=== PATIENT | female | born 1930 | race Caucasian/White ===

== ENCOUNTER 2018-01-30 00:47 | Emergency (ER) | payer OTHER ==
[~2018-01-30] VITALS: Ht 162.6 cm; Wt 70.3 kg
[2018-01-30 00:57] VITALS: BP_SYST 99
--- NOTE | 2018-01-30 00:57 | NUR ---
Placed in room 4 . Placed on nursing instructor, blood pressure machine and pulse oximeter. To gown for exam. Side rails up.
--- NOTE | 2018-01-30 01:00 | NUR ---
Patient is AAOx4, uses a wheelchair at home. Patient states she "took her blood pressure at home which was in the low 70s" approximately 30 minutes prior to ER visit. Patient denies weakness, denies chest pain, shortness of breath, and pain at this time. Patient denies any other complaints.
--- NOTE | 2018-01-30 01:03 | NUR ---
ER Dr. Upton at bedside examining patient.
[2018-01-30] MEDS ORDERED: NACL 0.9% 1,000 ML IV ONE ×2 (01:21→01:30)
[2018-01-30 02:27] LABS: BASOPHILS # (AUTO) 0.1 K/uL (0.0-0.2); BASOPHILS % (AUTO) 1.8 % (0.0-2.0); EOSINOPHILS # (AUTO) 0.2 K/uL (0.0-0.4); EOSINOPHILS % (AUTO) 2.5 % (0.0-4.0); HEMATOCRIT 33.7 % (36-48); HEMOGLOBIN 11.3 g/dL (12.0-16.0); LYMPHOCYTES # (AUTO) 1.2 K/uL (1.0-5.5); LYMPHOCYTES % (AUTO) 17.9 % (20.5-51.5); MEAN CORPUSCULAR HEMOGLOBIN 31 pg (27-31); MEAN CORPUSCULAR HGB CONC 34 % (32-36); MEAN CORPUSCULAR VOLUME 92 fL (79.0-98.0); MONOCYTES # (AUTO) 0.7 K/uL (0.0-1.0); NEUTROPHILS # (AUTO) 4.4 K/uL (1.8-7.7); NEUTROPHILS % (AUTO) 67.8 % (40.0-70.0); PLATELET COUNT (AUTO) 281 K/uL (130-430); RED BLOOD CELL COUNT(AUTO) 3.65 MIL/uL (4.2-6.2); RED CELL DISTRIBUTION WIDTH 13.9 % (9.0-15.0); WHITE BLOOD COUNT (AUTO) 6.6 K/uL (4.8-10.8)
[2018-01-30 02:36] LABS: ANION GAP 5 (5-15); CHLORIDE 106 mmol/L (98-107); CREATININE 1.68 mg/dL (0.55-1.30); GLUCOSE 99 mg/dL (70-99); POTASSIUM 3.8 mmol/L (3.5-5.1); SODIUM SERUM 139 mmol/L (136-145); UREA NITROGEN, BLOOD 38 mg/dL (8-21)
[2018-01-30 02:40] LABS: ALANINE AMINOTRANSFERASE 22 U/L (12-78); ALBUMIN 3.4 g/dL (3.4-4.8); AMYLASE 55 U/L (0-100); ASPARTATE AMINOTRANSFERASE 27 U/L (10-37); LIPASE 355 U/L (73-393); TOTAL BILIRUBIN 0.3 mg/dL (0.0-1.0)
--- NOTE | 2018-01-30 02:57 | NUR ---
Patient is calmly resting in ER bed, no signs of distress noted at this time. Patient denies any complaints.
[2018-01-30 03:21] LABS: PROTHROMBIN TIME 10.2 SECS (9.5-12.5)
[2018-01-30 03:23] LABS: CKMB RELATIVE INDEX 1.1 (0.0-2.9); CREATINE KINASE MB 2.2 ng/mL (0-3.6)
[2018-01-30] MEDS ORDERED: SPIR25TA PO (03:35)
[2018-01-30] MEDS ORDERED: THYR30TA PO (03:35)
[2018-01-30] MEDS ORDERED: GABA-531 PO (03:35)
[2018-01-30] MEDS ORDERED: POTA8TAB4 PO (03:35)
[2018-01-30] MEDS ORDERED: FURO-150 PO (03:35)
[2018-01-30] MEDS ORDERED: METO-442 PO (03:35)
[2018-01-30] MEDS ORDERED: RANI-362 PO (03:35)
[2018-01-30] MEDS ORDERED: APIX2.5T PO (03:35)
[2018-01-30] MEDS ORDERED: ALLO100T PO (03:35)
--- NOTE | 2018-01-30 03:35 | NUR ---
Medication reconciliation completed with information provided by patient. Any prior medication reconciliation on file was reviewed and corrected.
[2018-01-30 04:05] VITALS: BP_SYST 103
--- NOTE | 2018-01-30 04:05 | NUR ---
Patient given written and verbal discharge instructions and verbalizes understanding. ER MD discussed with patient the results and treatment provided. Patient in stable condition. ID arm band removed. IV catheter removed intact and dressing applied, no active bleeding. Patient educated on pain management and to follow up with PMD. Pain Scale 0/10. Opportunity for questions provided and answered.
== END 2018-01-30 04:05 | disposition home or self-care (01) ==
LOC: SED 00:47
DX: I95.89 Other hypotension (principal); M10.9 Gout, unspecified; Z79.899 Other long term (current) drug therapy
CPT/HCPCS: 36415; 71045; 80053; 82150; 82550; 82553; 83690; 84484; 85025; 85610; 85730; 93005; 96360; 96361; 99285; J7030; 96366

== ENCOUNTER 2018-03-06 14:36 | Observation (INO) | payer OTHER ==
[~2018-03-06] VITALS: Ht 162.6 cm; Wt 72.6 kg
[~2018-03-06 14:36] MED LIST: ALLO100T PO; APIX2.5T PO; FURO-150 PO; GABA-531 PO; METO-442 PO; POTA8TAB4 PO; RANI-362 PO; SPIR25TA PO; THYR30TA PO
[2018-03-06 14:45] VITALS: BP_SYST 132
[2018-03-06] MEDS ORDERED: ASPIRIN 81 MG TAB.CHEW PO ONE (15:15)
[2018-03-06 15:25] LABS: BASOPHILS # (AUTO) 0.1 K/uL (0.0-0.2); BASOPHILS % (AUTO) 0.9 % (0.0-2.0); EOSINOPHILS # (AUTO) 0.3 K/uL (0.0-0.4); EOSINOPHILS % (AUTO) 4.1 % (0.0-4.0); HEMOGLOBIN 12.1 g/dL (12.0-16.0); LYMPHOCYTES # (AUTO) 1.3 K/uL (1.0-5.5); LYMPHOCYTES % (AUTO) 21.4 % (20.5-51.5); MEAN CORPUSCULAR HEMOGLOBIN 31 pg (27-31); MEAN CORPUSCULAR HGB CONC 34 % (32-36); MEAN CORPUSCULAR VOLUME 92 fL (79.0-98.0); MONOCYTES # (AUTO) 0.6 K/uL (0.0-1.0); MONOCYTES % (AUTO) 10.3 % (1.7-9.3); NEUTROPHILS # (AUTO) 3.8 K/uL (1.8-7.7); NEUTROPHILS % (AUTO) 63.3 % (40.0-70.0); PLATELET COUNT (AUTO) 255 K/uL (130-430); RED CELL DISTRIBUTION WIDTH 13.7 % (9.0-15.0); WHITE BLOOD COUNT (AUTO) 6.1 K/uL (4.8-10.8)
[2018-03-06 15:38] LABS: ANION GAP 7 (5-15); CALCIUM 9.2 mg/dL (8.4-11.0); CHLORIDE 103 mmol/L (98-107); CREATININE 1.36 mg/dL (0.55-1.30); GLUCOSE 109 mg/dL (70-99); POTASSIUM 3.7 mmol/L (3.5-5.1); SODIUM SERUM 140 mmol/L (136-145); UREA NITROGEN, BLOOD 22 mg/dL (8-21)
[2018-03-06 15:44] LABS: ALANINE AMINOTRANSFERASE 22 U/L (12-78); ALBUMIN 3.6 g/dL (3.4-4.8); ASPARTATE AMINOTRANSFERASE 27 U/L (10-37); TOTAL BILIRUBIN 0.6 mg/dL (0.0-1.0)
[2018-03-06 16:14] LABS: CKMB RELATIVE INDEX 1.4 (0.0-2.9); CREATINE KINASE MB 3.6 ng/mL (0-3.6)
[2018-03-06] MEDS ORDERED: fentaNYL CITRATE/PF 100 MCG/2 ML AMP IVP ONE (17:00)
[2018-03-06 17:35] VITALS: BP_SYST 136
[2018-03-06] MEDS: APIXABAN 2.5 MG TABLET PO SCH (19:28)
[2018-03-06 19:55] VITALS: BP_SYST 120
[2018-03-06] MEDS: GABAPENTIN 300 MG CAPSULE PO SCH (20:31)
[2018-03-06] MEDS: FUROSEMIDE 20 MG TABLET PO SCH (20:32)
[2018-03-06] MEDS: METOPROLOL TARTRATE 50 MG TABLET PO SCH (20:32)
[2018-03-06] MEDS ORDERED: FAMOTIDINE 20 MG TABLET PO SCH (21:00)
[2018-03-07 01:37] VITALS: BP_SYST 117
[2018-03-07] MEDS ORDERED: THYROID 30 MG TABLET PO SCH (06:00)
[2018-03-07 08:17] VITALS: BP_SYST 108
[2018-03-07] MEDS ORDERED: ALLOPURINOL 100 MG TABLET (ZYLOPRIM) PO SCH (09:00)
[2018-03-07] MEDS: FUROSEMIDE 20 MG TABLET PO SCH (09:29)
[2018-03-07] MEDS: GABAPENTIN 300 MG CAPSULE PO SCH (09:29)
[2018-03-07] MEDS: METOPROLOL TARTRATE 50 MG TABLET PO SCH (09:30)
[2018-03-07] MEDS: APIXABAN 2.5 MG TABLET PO SCH (09:31)
[2018-03-07 11:04] VITALS: BP_SYST 118
[2018-03-07 14:31] VITALS: BP_SYST 117
== END 2018-03-07 14:50 | disposition home or self-care (01) ==
LOC: SED 14:36 → STU 16:56
PROVIDERS: ADMIT Internal Medicine Hospice and Palliative Medicine; ATTEND Internal Medicine Hospice and Palliative Medicine
DX: R07.89 Other chest pain (principal); E03.9 Hypothyroidism, unspecified; Z86.718 Personal history of other venous thrombosis and embolism
CPT/HCPCS: 36415 ×2; 71045; 80053; 82550; 82553; 84484 ×2; 85025; 85379; 93005; 93306; 93970; 99285; G0378 ×2

== ENCOUNTER 2018-06-29 16:56 | Inpatient (IN) | payer OTHER ==
[~2018-06-29] VITALS: Ht 162.6 cm; Wt 72.1 kg
[~2018-06-29 16:56] MED LIST changes: -SPIR25TA PO
[2018-06-29 17:06] VITALS: BP_SYST 135
--- NOTE | 2018-06-29 17:10 | NUR ---
Patient triaged and placed in waiting room. VSS and patient appears in no acute distress at this time. Accompanied by FAMILY, awaiting available bed, and MD notified of need for MSE.
--- NOTE | 2018-06-29 17:12 | NUR ---
Patient arrived via wheelchair, patient AAOx4. Patient c/c of right lower leg laceration. Patient edematous and weeping. Patient denies pain at this time. Patient denies any shortness of breath or chest pain. No complaints of nausea, vomiting, and diarrhea. Will continue to follow up and monitor patient for changes in status.
--- NOTE | 2018-06-29 17:13 | NUR ---
ambulated to bed 7
--- NOTE | 2018-06-29 17:18 | NUR ---
ER at bedside examining patient.
[2018-06-29] MEDS ORDERED: NACL 0.9% 1,000 ML IV ONE (17:23)
[2018-06-29] MEDS ORDERED: LIDOCAINE 1% 10 MG/ML, 20 ML MDV IJ ONE (17:30)
[2018-06-29] MEDS ORDERED: MORPHINE 4 MG/ML INJ. SYRINGE IVP ONE (17:30)
[2018-06-29] MEDS ORDERED: BACITRACIN 1 GM OINT TP ONE (17:30)
[2018-06-29 17:54] LABS: BASOPHILS # (AUTO) 0.1 K/uL (0.0-0.2); BASOPHILS % (AUTO) 1.8 % (0.0-2.0); EOSINOPHILS # (AUTO) 0.1 K/uL (0.0-0.4); EOSINOPHILS % (AUTO) 0.8 % (0.0-4.0); HEMATOCRIT 40.3 % (36-48); HEMOGLOBIN 12.9 g/dL (12.0-16.0); LYMPHOCYTES # (AUTO) 1.5 K/uL (1.0-5.5); LYMPHOCYTES % (AUTO) 22.9 % (20.5-51.5); MEAN CORPUSCULAR HEMOGLOBIN 30 pg (27-31); MEAN CORPUSCULAR HGB CONC 32 % (32-36); MEAN CORPUSCULAR VOLUME 92 fL (79.0-98.0); MONOCYTES # (AUTO) 0.6 K/uL (0.0-1.0); MONOCYTES % (AUTO) 8.7 % (1.7-9.3); NEUTROPHILS # (AUTO) 4.3 K/uL (1.8-7.7); NEUTROPHILS % (AUTO) 65.8 % (40.0-70.0); PLATELET COUNT (AUTO) 252 K/uL (130-430); RED BLOOD CELL COUNT(AUTO) 4.36 MIL/uL (4.2-6.2); RED CELL DISTRIBUTION WIDTH 15.1 % (9.0-15.0); WHITE BLOOD COUNT (AUTO) 6.6 K/uL (4.8-10.8)
[2018-06-29 18:07] LABS: ANION GAP 7 (5-15); CALCIUM 9.6 mg/dL (8.4-11.0); CHLORIDE 102 mmol/L (98-107); CREATININE 1.16 mg/dL (0.55-1.30); GLUCOSE 94 mg/dL (70-99); POTASSIUM 3.7 mmol/L (3.5-5.1); SODIUM SERUM 142 mmol/L (136-145); UREA NITROGEN, BLOOD 29 mg/dL (8-21)
[2018-06-29 18:12] LABS: PROTHROMBIN TIME 9.9 SECS (9.5-12.5)
[2018-06-29 18:13] LABS: ALANINE AMINOTRANSFERASE 23 U/L (12-78); ALBUMIN 3.5 g/dL (3.4-4.8); AMYLASE 56 U/L (0-100); ASPARTATE AMINOTRANSFERASE 32 U/L (10-37); LIPASE 301 U/L (73-393); TOTAL BILIRUBIN 0.4 mg/dL (0.0-1.0)
--- NOTE | 2018-06-29 18:39 | NUR ---
Orders entered by RN, orders received from Dr. Jack Aceves. Will call for bed assignment.
[2018-06-29] MEDS ORDERED: POTA10TA15 PO (18:44)
[2018-06-29] MEDS ORDERED: FURO-149 PO (18:44)
[2018-06-29] MEDS ORDERED: THYR30TA PO (18:44)
--- NOTE | 2018-06-29 18:44 | NUR ---
Medication reconciliation completed with information provided by patient. Any prior medication reconciliation on file was reviewed and corrected.
[2018-06-29] MEDS ORDERED: ONDANSETRON HCL 4 MG/2 ML VIAL IVP PRN (18:45)
--- NOTE | 2018-06-29 19:12 | NUR ---
Patient will be admitted to care of Dr. Jack Aceves. Admitted to Tele unit. Will go to room 101A. Belongings list completed. Summary report printed. Report will be given at bedside.
--- NOTE | 2018-06-29 19:37 | NUR ---
CONSULTATION CALLED REASON FOR CONSULTATION:CHF WAS CONSULT CALLED?Y PERSON WHO WAS NOTIFIED:[place] CONSULTING PHYSICIAN:CLAUDE WAYNE (KARLO OSCAR AQUATIC LABORER) DIRECTOR TRIAL SPECIALTY:CARDIO DIRECTOR TRIAL PHONE NUMBER:[phone] ORDERING PHYSICIAN:JERZY TREVINO
--- NOTE | 2018-06-29 19:37 | NUR ---
ADMISSION: The patient, LIEN GAVIRIA, 87 y/o, F admitted by JERZY CONWAY MD,with the diagnosis of CHF , was given written information regarding hospital policies, unit procedures and contact persons.
[2018-06-29 20:00] VITALS: BP_SYST 126
[2018-06-29 20:01] VITALS: BP_SYST 126
[2018-06-29] MEDS ORDERED: METO50TA7 PO (20:34)
--- NOTE | 2018-06-29 20:35 | NUR ---
MEDICATION REC: WHILE CHECKING THE MEDICATION PT TAKES AT HOME NOTICED THAT PT TAKES METOPROLOL SUCCINATE AND ER ENTERED METOPROLOL TARTATE , CONFIRMED WITH WHO GAVE THE MEDICATION LIST PER PT TAKES METOPROLOL SUCCINATE ER 50 MG PO TWO TIMES A DAY . PHARMACY CALLED TO CLARIFIED THE METOPROLOL SUCCINATE ER AND SR ORDER , PHARMACY STATED TO ENTER THE SR IT IS SAME LIKE ER .ALSO PHARMACY STATED USUALLY THIS MEDICATION IS ONCE A DAY , GONE TO AND CONFIRMED GAIN PER PT TAKES IT TWICE A DAY . ENTERED IT .
[2018-06-29] MEDS ORDERED: APIXABAN 2.5 MG TABLET PO SCH (21:30)
[2018-06-29] MEDS ORDERED: METOPROLOL SUCCINATE 50 MG TAB.SR.24H (TOPROL XL) PO SCH (21:30)
[2018-06-29] MEDS: FUROSEMIDE 20 MG/2 ML VIAL IVP SCH (21:59)
[2018-06-29] MEDS: POTASSIUM CHLORIDE 10 MEQ TAB.PRT.SR PO SCH (21:59)
[2018-06-29] MEDS: GABAPENTIN 300 MG CAPSULE PO SCH (21:59)
[2018-06-29] MEDS: NORMAL SALINE 5 ML DISP.SYRIN IVF SCH (22:01)
--- NOTE | 2018-06-29 22:13 | NUR ---
Patient tolerated PO medications well. Administered lasix IVP. Right lower leg has minimal drainage/weeping. Patient states no pain or respiratory distress.
[2018-06-29 23:38] VITALS: BP_SYST 137
--- NOTE | 2018-06-30 00:15 | NUR ---
Patient in bed asleep with visualized rise and fall of chest. no appearance of pain or respiratory distress. Call light within reach of the left hand. Will continue to monitor.
--- NOTE | 2018-06-30 02:58 | NUR ---
Patient in bed awake. unable to sleep. patient has no needs at this time. Will use call light if needs to use the bathroom.
[2018-06-30 03:21] LABS: ANION GAP 6 (5-15); CHLORIDE 104 mmol/L (98-107); CREATININE 1.13 mg/dL (0.55-1.30); GLUCOSE 100 mg/dL (70-99); POTASSIUM 3.5 mmol/L (3.5-5.1); SODIUM SERUM 145 mmol/L (136-145); UREA NITROGEN, BLOOD 26 mg/dL (8-21)
[2018-06-30 03:30] LABS: ALANINE AMINOTRANSFERASE 19 U/L (12-78); ASPARTATE AMINOTRANSFERASE 26 U/L (10-37); TOTAL BILIRUBIN 0.5 mg/dL (0.0-1.0)
--- NOTE | 2018-06-30 04:51 | NUR ---
no change in condition.
[2018-06-30] MEDS: NORMAL SALINE 5 ML DISP.SYRIN IVF SCH ×3 (05:59→20:37)
[2018-06-30 07:04] LABS: BASOPHILS % (AUTO) 0.4 % (0.0-2.0); EOSINOPHILS # (AUTO) 0.1 K/uL (0.0-0.4); EOSINOPHILS % (AUTO) 1.2 % (0.0-4.0); HEMATOCRIT 36.8 % (36-48); HEMOGLOBIN 11.9 g/dL (12.0-16.0); LYMPHOCYTES # (AUTO) 1.8 K/uL (1.0-5.5); LYMPHOCYTES % (AUTO) 29.4 % (20.5-51.5); MEAN CORPUSCULAR HEMOGLOBIN 30 pg (27-31); MEAN CORPUSCULAR HGB CONC 32 % (32-36); MEAN CORPUSCULAR VOLUME 92 fL (79.0-98.0); MONOCYTES # (AUTO) 0.8 K/uL (0.0-1.0); MONOCYTES % (AUTO) 12.6 % (1.7-9.3); NEUTROPHILS # (AUTO) 3.4 K/uL (1.8-7.7); NEUTROPHILS % (AUTO) 56.4 % (40.0-70.0); PLATELET COUNT (AUTO) 225 K/uL (130-430); RED BLOOD CELL COUNT(AUTO) 3.98 MIL/uL (4.2-6.2); RED CELL DISTRIBUTION WIDTH 15.4 % (9.0-15.0); WHITE BLOOD COUNT (AUTO) 6.1 K/uL (4.8-10.8)
--- NOTE | 2018-06-30 07:26 | NUR ---
Closing notes Patient in bed resting. Dressing on the right lower leg with minimal bleeding and weeping. Photos taken and documented. Tolerated all medications with no adverse reaction. No pain or respiratory distress noted. All needs have been met and will endorse care to oncoming nurse.
--- NOTE | 2018-06-30 07:41 | NUR ---
OPENING NOTE PATIENT RECEIVED RESTING IN BED, PATIENT IS AWAKE, ALERT, AND ORIENTED, PATIENT DENIES ANY PAIN OR ACUTE DISTRESS AT THIS TIME, BREATHING IS EVEN AND UNLABORED, EDUCATED PATIENT ON PLAN OF CARE AND CALL LIGHT SYSTEM, WILL CONTINUE TO MONITOR, SAFETY PRECAUTIONS IN PLACE, CALL LIGHT WITHIN REACH.
[2018-06-30 08:00] VITALS: BP_SYST 127
[2018-06-30] MEDS: THYROID 30 MG TABLET PO SCH (08:22)
[2018-06-30] MEDS: GABAPENTIN 300 MG CAPSULE PO SCH ×2 (08:23→20:35)
[2018-06-30] MEDS: ALLOPURINOL 100 MG TABLET (ZYLOPRIM) PO SCH (08:23)
[2018-06-30] MEDS: FUROSEMIDE 20 MG/2 ML VIAL IVP SCH ×2 (08:23→20:33)
[2018-06-30] MEDS: METOPROLOL TARTRATE 50 MG TABLET PO SCH ×2 (08:24→20:35)
[2018-06-30] MEDS: POTASSIUM CHLORIDE 10 MEQ TAB.PRT.SR PO SCH ×2 (08:25→20:35)
[2018-06-30] MEDS: FAMOTIDINE 20 MG TABLET PO SCH (08:25)
[2018-06-30] MEDS: APIXABAN 2.5 MG TABLET PO SCH ×2 (08:26→20:34)
--- NOTE | 2018-06-30 10:51 | NUR ---
NOTES PATIENT IS RESTING IN BED, PATIENT DENIES ANY PAIN OR ACUTE DISTRESS AT THIS TIME, BREATHING IS EVEN AND UNLABORED, FAMILY IS AT BEDSIDE, WILL CONTINUE TO MONITOR, SAFETY PRECAUTIONS IN PLACE, CALL LIGHT WITHIN REACH.
--- NOTE | 2018-06-30 11:20 | NUR ---
MD ROUNDS DR. GONZALEZ MADE AWARE OF RECENT 2D ECHO AND PROBLEM WITH SENIOR VISUAL DESIGNER REGARDING INSURANCE.
--- NOTE | 2018-06-30 11:57 | NUR ---
Nutrition Update Yrn Scale 16 noted. Pt admitted for CHF. Diet: cardiac BMI: 27.4 kg/m2 RD to follow per nutrition care standards.
--- NOTE | 2018-06-30 12:24 | NUR ---
SPOKE TO DR. LISA SWARTZ AWARE OF PROBLEM REGARDING UNIVERSITY EXTENSION SPECIALIST AND THE INSURANCE, STATED PATIENT DOES NOT NEED UNIVERSITY EXTENSION SPECIALIST CONSULT.
[2018-06-30 12:30] VITALS: BP_SYST 100
--- NOTE | 2018-06-30 14:18 | NUR ---
NOTES PATIENT IS RESTING IN BED, PATIENT IS AWAKE, ALERT, AND ORIENTED, PATIENT DENIES ANY PAIN OR ACUTE DISTRESS AT THIS TIME, BREATHING IS EVEN AND UNLABORED, WILL CONTINUE TO MONITOR, SAFETY PRECAUTIONS IN PLACE, CALL LIGHT WITHIN REACH.
[2018-06-30 16:18] VITALS: BP_SYST 128
--- NOTE | 2018-06-30 16:20 | NUR ---
NOTES PATIENT IS RESTING IN BED, PATIENT IS AWAKE, ALERT, AND ORIENTED, BREATHING IS EVEN AND UNLABORED, PATIENT DENIES ANY ACUTE DISTRESS OR PAIN AT THIS TIME, FAMILY IS AT BEDSIDE, WILL CONTINUE TO MONITOR, SAFETY PRECAUTIONS IN PLACE, CALL LIGHT WITHIN REACH.
--- NOTE | 2018-06-30 18:22 | NUR ---
CLOSING NOTE PATIENT IS RESTING IN BED, PATIENT TOLERATED DINNER WELL, PATIENT IS ALERT, AWAKE, AND ORIENTED, BREATHING IS EVEN AND UNLABORED, PATIENT DENIES ANY PAIN OR ACUTE DISTRESS, WILL ENDORSE REPORT TO ONCOMING NURSE, ALL NEEDS WERE MET THROUGHOUT SHIFT, IS AT BEDSIDE, SAFETY PRECAUTIONS IN PLACE, CALL LIGHT WITHIN REACH.
--- NOTE | 2018-06-30 19:05 | NUR ---
Opening Notes Received patient resting in bed. AAOx4 and able to verbalize needs. Patient states no pain or respiratory distress. Lung and heart sounds wnl. Right lower leg visualized, clean and dry. no noticeable drainage or odor. Oriented the patient to the room and use of the call light. Patient is bedrest and will need bed bennett to urinate. Bed alarm is active and safety precautions in place.
[2018-06-30 20:00] VITALS: BP_SYST 116
--- NOTE | 2018-06-30 22:14 | NUR ---
Patient in bed resting comfortably with son at the bedside. Tolerated medications well. Educated on medication side effects and use. Patient acknowledged understanding. No pain or sob at this time.
[2018-07-01] VITALS: BP_SYST 124
--- NOTE | 2018-07-01 00:10 | NUR ---
resting in bed. safety precautions in place. no pain or sob breathing equal and unlabored. will cont to monitor.
--- NOTE | 2018-07-01 02:25 | NUR ---
Patient sleeping. Visual rise and fall of chest noted. Call light within reach. no appearance of pain or distress.
--- NOTE | 2018-07-01 04:50 | NUR ---
patient complaints of back pain. Given tylenol 650mg. Patients states she take tylenol at home for pain. No respiratory distress.
[2018-07-01] MEDS: ACETAMINOPHEN 325 MG TABLET PO PRN (04:56)
[2018-07-01] MEDS: THYROID 30 MG TABLET PO SCH (06:20)
[2018-07-01] MEDS: NORMAL SALINE 5 ML DISP.SYRIN IVF SCH ×3 (06:20→21:27)
--- NOTE | 2018-07-01 06:47 | NUR ---
Closing notes Patient in bed resting. Complaining of back pain. Repositioned with pillow to the back. No respiratory distress. Patient is anxious to go home. Safety precautions in place. All needs have been met and will endorse care to oncoming nurse.
--- NOTE | 2018-07-01 07:40 | NUR ---
OPENING NOTE PATIENT RECEIVED RESTING IN BED, EXTREME PAIN NOTED, WILL PAGE DR. GONZALEZ, PATIENT IS BREATHING EVEN AND UNLABORED ON ROOM AIR, NO OTHER ACUTE DISTRESS NOTED, EDUCATED PATIENT ON PLAN OF CARE AND CALL LIGHT SYSTEM, WILL CONTINUE TO MONITOR, SAFETY PRECAUTIONS IN PLACE, CALL LIGHT WITHIN REACH.
[2018-07-01] MEDS: HYDROcodone/ACETAMIN 5-325 MG TAB (NORCO/ VICODIN) PO ONE ×2 (07:45→08:07)
--- NOTE | 2018-07-01 07:45 | NUR ---
PATIENT STATING EXTREME PAIN, SPOKE TO DR. GONZALEZ, NEW ORDERS RECEIVED.
[2018-07-01] MEDS ORDERED: HYDROcodone/ACETAMIN 5-325 MG TAB (NORCO/ VICODIN) ONE ×2 (07:48→13:02)
[2018-07-01 08:05] VITALS: BP_SYST 133
[2018-07-01] MEDS: FUROSEMIDE 20 MG/2 ML VIAL IVP SCH ×2 (08:28→21:25)
[2018-07-01] MEDS: ALLOPURINOL 100 MG TABLET (ZYLOPRIM) PO SCH (08:29)
[2018-07-01] MEDS: METOPROLOL TARTRATE 50 MG TABLET PO SCH ×2 (08:29→21:24)
[2018-07-01] MEDS: GABAPENTIN 300 MG CAPSULE PO SCH ×2 (08:29→21:23)
[2018-07-01] MEDS: FAMOTIDINE 20 MG TABLET PO SCH (08:29)
[2018-07-01] MEDS: POTASSIUM CHLORIDE 10 MEQ TAB.PRT.SR PO SCH ×2 (08:29→21:23)
[2018-07-01] MEDS: APIXABAN 2.5 MG TABLET PO SCH ×2 (08:31→21:26)
--- NOTE | 2018-07-01 09:50 | NUR ---
notes patient is resting in bed, awake alert, and oriented, breathing is even and unlabored, no acute distress noted, pain is controlled at this time, is at bedside, will continue to monitor, safety precautions in place, call light within reach.
--- NOTE | 2018-07-01 10:30 | NUR ---
CASE MANAGEMENT / DC SPOKE TO OUTSIDE [employer] FROM [facility], [employer]SIDE [employer] REQUESTED TO FAX INFORMATION.
--- NOTE | 2018-07-01 10:45 | NUR ---
CASE MANAGEMENT / DC FAXED INFORMATION TO [facility]ORAT[facility] TECHNICIAN, RECEIVED CONFIRMATION, AWAITING A CALL BACK.
--- NOTE | 2018-07-01 11:45 | NUR ---
NOTES PATIENT IS RESTING IN BED, PATIENT STATING VERY BAD PAIN, ASSISTED PATIENT TO BED PATLE, BREATHING IS EVEN AND UNLABORED, REPOSITIONED FOR COMFORT, WILL CONTINUE TO MONITOR, SAFETY PRECAUTIONS IN PLACE CALL LIGHT WITHIN REACH.
[2018-07-01 12:00] VITALS: BP_SYST 115
--- NOTE | 2018-07-01 12:04 | NUR ---
Dietitian Recommendations *Recommend 2gm Na diet. *Encourage pt to increase PO intake. Please see Nutritional Assessment for details. WILLIAMS, RD
--- NOTE | 2018-07-01 12:50 | NUR ---
SPOKE TO DR. GONZALEZ NEW ORDERS RECEIVED.
--- NOTE | 2018-07-01 15:23 | NUR ---
NOTES PATIENT IS RESTING IN BED, PAIN IS CONTROLLED AT THIS TIME, BREATHING IS EVEN AND UNLABORED, IS AT BEDSIDE, NO ACUTE DISTRESS NOTED, WILL CONTINUE TO MONITOR, SAFETY PRECAUTIONS IN PLACE, CALL LIGHT WITHIN REACH.
[2018-07-01 16:00] VITALS: BP_SYST 137
--- NOTE | 2018-07-01 16:51 | NUR ---
CASE MANAGEMENT SPOKE TO OUTSIDE CERTIFIED CORPORATE TRAVEL EXECUTIVE, NICKOLAS, PATIENT WILL BE TRANSFERRED TO [facility] TO ROOM 14, PATIENT WILL BE PICKED UP BY [facility].
--- NOTE | 2018-07-01 17:23 | NUR ---
CASE MANAGEMENT SPOKE TO NICKOLAS FROM [facility] AND REFUSED TRANSFER BECAUSE FACILITY IS TOO FAR, NICKOLAS IS AWARE AND WILL TAKE CARE OF IT TOMORROW.
[2018-07-01] MEDS: HYDROcodone/ACETAMIN 5-325 MG TAB (NORCO/ VICODIN) PO PRN (18:41)
--- NOTE | 2018-07-01 18:47 | NUR ---
CLOSING NOTE PATIENT IS RESTING IN BED, PAIN IS CONTROLLED AT THIS TIME, BREATHING IS EVEN AND UNLABORED, NO ACUTE DISTRESS NOTED, FAMILY IS AT BEDSIDE, IV IS PATENT, WILL ENDORSE REPORT TO ONCOMING NURSE, SAFETY PRECAUTIONS IN PLACE, CALL LIGHT WITHIN REACH.
--- NOTE | 2018-07-01 19:15 | NUR ---
initial notes: pt is on bed, talking to family family member, awake, alert, oriented x 4. no pain, stable. pt has iv lock to right ac gauge 20- intact and patent. explain to pt the poc tonight. pt agree and verbalized understanding. instructed to call for assistance. call light in reach. side rails up. low bed position. will continue to monitor.
[2018-07-01 19:32] VITALS: BP_SYST 120
--- NOTE | 2018-07-01 20:00 | NUR ---
assessment. vital sign are stable. no skin break down at the back. pt has left leg dressing-cdi. needs attended. call light in reach. will monitor.
--- NOTE | 2018-07-01 22:00 | NUR ---
notes: pt is assisted to bed pain. clean pt and chux is change. pt tolerate well. call light in reach. will monitor.
[2018-07-01 23:25] VITALS: BP_SYST 140
--- NOTE | 2018-07-02 | NUR ---
notes; pt is sleeping, comfortable. no sign of pain. no distress. stable. call light in reach, side rails up. low bed position. will monitor.
--- NOTE | 2018-07-02 02:00 | NUR ---
notes: sleeping' comfortable. no acute distress, stable. call light in reach. will monitor.
--- NOTE | 2018-07-02 04:00 | NUR ---
notes: pt wakes up. no pain. comfortable. needs attended. call light in reach. will monitor.
--- NOTE | 2018-07-02 06:00 | NUR ---
round notes: pt is awake, alert.assisted by rn to bedpan. pull up in bed. needs attended, call ight in reach. will monitor.
[2018-07-02] MEDS: THYROID 30 MG TABLET PO SCH (06:46)
[2018-07-02] MEDS: NORMAL SALINE 5 ML DISP.SYRIN IVF SCH (06:50)
--- NOTE | 2018-07-02 07:30 | NUR ---
closing: awake, alert. eating breakfast in bed, stable. needs attended the whole shift. call light in reach. bedside report to am rn.
--- NOTE | 2018-07-02 07:40 | NUR ---
INITIAL NOTE RECEIVED PATIENT FROM BULK GAS SPECIALIST; PER [place] WERNER PATIENT IS AWAITING ON PLACEMENT POSSIBLY AT [facility], PATIENT WAS SUPPOSE TO GO TO [facility] ORIGINALLY BUT SNF IS TOO FAR AND PATIENT REQUESTED SOMETHING CLOSER. PATIENT AWAKE, ALERT, ORIENTED. ROOM AIR. NO ACUTE DISTRESS. NO SOB. RESP EVEN AND UNLABORED. SKIN WARM AND DRY TO TOUCH. IV INTACT AND PATENT;SL. BED IN LOW AND LOCKED POSITION. SIDERAIL UPX2. BED ALARM ON. PLAN OF CARE DISCUSSED. ALL NEEDS MET. CALL LIGHT IN REACH. CONT TO MONITOR Addendum: 07/02/18 at 1013 by Lauren Golden RN REPORT RECEIVED FROM JUICE WERNER, NOT [place]
[2018-07-02 08:00] VITALS: BP_SYST 125
[2018-07-02] MEDS: METOPROLOL TARTRATE 50 MG TABLET PO SCH (08:41)
[2018-07-02] MEDS: FUROSEMIDE 20 MG/2 ML VIAL IVP SCH (08:41)
[2018-07-02] MEDS: GABAPENTIN 300 MG CAPSULE PO SCH (08:41)
[2018-07-02] MEDS: ALLOPURINOL 100 MG TABLET (ZYLOPRIM) PO SCH (08:42)
[2018-07-02] MEDS: FAMOTIDINE 20 MG TABLET PO SCH (08:42)
[2018-07-02] MEDS: APIXABAN 2.5 MG TABLET PO SCH (08:42)
[2018-07-02] MEDS: POTASSIUM CHLORIDE 10 MEQ TAB.PRT.SR PO SCH (08:42)
[2018-07-02] MEDS: HYDROcodone/ACETAMIN 5-325 MG TAB (NORCO/ VICODIN) PO PRN (08:53)
--- NOTE | 2018-07-02 08:55 | NUR ---
[facility] ALL DUE MEDS ADMINISTERED, EMELIA WELL. PATIENT C/O 6/10 BACK PAIN; NORCO ADMINISTERED ORDERED AND REPOSITIONED FOR COMFORT; WILL CONT TO MONITOR.
--- NOTE | 2018-07-02 10:22 | NUR ---
OCTAVIANO SPOKE TO DAVE COTTER FROM CASE MG[facility]. SHE STATED SHE SPOKE TO PATIENT AT BEDSIDE AND PATIENT WILL BE TRANSFERRED TO [facility], TODAY TO ROOM 103A WITH P/U TIME @ 1300 BY [facility]
--- NOTE | 2018-07-02 11:00 | NUR ---
WOUND CARE WOUND CARE PROVIDED TO RIGHT LOWER LATERAL LEG; PATIENT EMELIA WELL. ALL NEEDS MET. CONT TO MONITOR
--- NOTE | 2018-07-02 11:16 | NUR ---
Discharge Planning: DCP faxed pt order to Molly at [facility] (f [phone] p [phone]).
--- NOTE | 2018-07-02 11:20 | NUR ---
[facility] CALLED [facility] [phone] AND SPOKE WITH JOSSUE WERNER AND REPORT WAS GIVEN WITH STAGE DRIVER TIME AT 1300 BY [facility]; PT GOING TO ROOM 103A
--- NOTE | 2018-07-02 12:10 | NUR ---
DCP. MET WITH PATIENT AND SPOUSE AT BEDSIDE. DCP DISCUSSED . AGREED FOR SNF [facility] 103 A T [phone]. [facility] 1 PM T [phone]. DAVE RODRIGES RN. T [phone]
--- NOTE | 2018-07-02 12:30 | NUR ---
NOTE PATIENT SITTING UP IN BED EATING LUNCH, EMELIA WELL. AT BEDSIDE. ALL NEEDS MET. CONT TO MONITOR
--- NOTE | 2018-07-02 13:06 | NUR ---
Transport: Spoke with Radha at [facility]. Transport pushed back until 1400 hours.
[2018-07-02 13:26] VITALS: BP_SYST 108
[2018-07-02] MEDS: ACETAMINOPHEN 325 MG TABLET PO PRN (13:56)
--- NOTE | 2018-07-02 14:21 | NUR ---
PHYS THERAPY EVAL ORDERS RECEIVED. ATTEMPTED TO SEE PATIENT FOR PT EVAL, HOWEVER RN AT BEDSIDE STATED PATIENT IS BEING PICKED UP IN A FEW MINUTES TO TRANSFER TO SNF. PATIENT TO BE DC'D TO SNF TODAY.
--- NOTE | 2018-07-02 14:30 | NUR ---
PT TRANSFERRED Report given to JOSSUE WERNER at [facility]. Transfer packet with Transfer Orders and Medication Reconciliation form given to EMT with report. Exitcare provided. [facility] ID band removed, replaced with ID band with pt's name and . IV catheter removed, intact and dressing applied, no active bleeding. All belongings sent with patient. Patient left floor via gurney escorted by EMT in no distress.
== END 2018-07-02 14:30 | DRG 605 ==
LOC: SED 16:56 → STU 18:43 → SMU 07-01 11:25
PROVIDERS: ADMIT Internal Medicine; ATTEND Internal Medicine
PROC: 0HQKXZZ Repair Right Lower Leg Skin, External Approach (ICD-10-PCS; principal; 2018-06-29)
DX: S81.811A Laceration without foreign body, right lower leg, initial encounter (principal); R60.0 Localized edema; I11.0 Hypertensive heart disease with heart failure; I50.9 Heart failure, unspecified; E03.9 Hypothyroidism, unspecified; G62.9 Polyneuropathy, unspecified; M10.9 Gout, unspecified; R59.1 Generalized enlarged lymph nodes; Z79.01 Long term (current) use of anticoagulants; Z86.718 Personal history of other venous thrombosis and embolism
CPT/HCPCS: 36415; 71045; 80053; 82150-TC; 82550-TC; 83690-TC; 83880; 84484; 85025; 85379; 85610-TC; 85730-TC; 93005; 93970; 99285; A6209; G0378; J1940; J2001; J2270; J7030